=== PATIENT | male | born 1945 | race Caucasian/White ===

== ENCOUNTER 2017-09-23 12:36 | Emergency (ER) | payer MEDICARE, OTHER, SELFPAY ==
[2017-09-23 12:37] VITALS: BP 138/75; PULSE 99; RESP 18; TEMP 37.4; O2SAT 93; BMI 30.7
--- NOTE | 2017-09-23 12:57 | NURSING ---
NO LW OR POA
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
[2017-09-23 13:02] LABS: Mucous, Urine 0 SEEN /hpf (<or=2+); Red Blood Cells-Urine 0 SEEN /hpf (0-5); Squamous Epithelial Cells - UA 0 SEEN /hpf (0-5)
[2017-09-23 13:19] LABS: Color, Urine Amber (Yellow); Glucose, Dipstick Normal (Normal); Ketone-Dipstick 15 mg/dl (Negative); Leukocyte Esterase-Dipstick 500 /ul (Negative); Nitrite-Dipstick Positive (Negative); Occult Blood-Urine 250 /ul (Negative); Protein-Dipstick 100 mg/dl (Negative); Urine Clarity Cloudy (Clear); Urine Urobilinogen 1 mg/dl (Normal)
[2017-09-23 13:20] LABS: Urine Bilirubin Dipstick 1 mg/dL (Negative)
[2017-09-23 13:23] LABS: Absolute Lymphocyte Count 1.18 X10^3/ul (0.83-4.51); Absolute Neutrophil Count 10.8 X10^3/uL (2.0-7.7); Basophil# 0.01 X10^3/uL; Basophil% 0.1 % (0-1); Hematocrit 43.6 % (40-54); Hemoglobin 15.2 g/dl (13.0-16.5); Lymphocyte # 1.18 X10^3/ul (4.0); Lymphocyte % 9.2 % (19-41); Mean Corp Hgb Conc 34.9 g/gl (32-36); Mean Corpuscular Hgb 30.8 pg (27.0-32.0); Mean Corpuscular Volume 88.3 fL (80-94); Mean Platelet Vol. 11.2 fl (6.2-12.0); Monocyte# 0.85 X10^3/uL; Monocyte% 6.6 % (0-10); Neutrophil # 10.79 X10^3/uL (2.7-7.7); Neutrophil % 83.9 % (47-70); POSITIVE COUNT NO; POSITIVE DIFFERENTIAL NO; POSITIVE MORPHOLOGY NO; Platelet Count 143 K/mm3 (150-450); RBC Distribution Width CV 12.9 % (11.6-14.6); RBC Distribution Width SD 41.8 fl (35.1-43.9); Red Blood Count 4.94 M/mm3 (4.6-6.2); White Blood Count 12.9 K/mm3 (4.4-11.0)
[2017-09-23 13:29] LABS: Bacteria 2+ /hpf (None Seen); White Blood Cells >100 SEEN /hpf (0-5)
[2017-09-23 13:35] LABS: Anion Gap 6 (5-15); BUN 12 mg/dL (7-18); BUN/Creat Ratio 10.4 RATIO (10-20); Calcium,Total 8.7 mg/dL (8.5-10.1); Chloride 106 mmol/L (98-107); Creatinine, Serum 1.15 mg/dL (0.70-1.30); EST Glomerular Filtration Rate 66 mL/min (>60); Est Glom Filt Rate - Afr Amer 80 mL/min (>60); Estimated Creatinine Clearance 50.86 ml/min; Glucose 151 mg/dL (74-106); Potassium 3.9 mmol/L (3.5-5.1); Sodium Level 137 mmol/L (136-145)
--- NOTE | 2017-09-23 14:23 | DCINST.ED_ITS ---
ED Disposition - Plan for ED Patient: Chief Complaint: Complaint Instructions: ED UTI Cystitis Male Prescriptions: Ciprofloxacin [Cipro] 500 mg PO BID #14 tab Referrals: [facility] Doctor,Out of [Primary Care Provider] -
--- NOTE | 2017-09-23 14:24 | DCINST.ED_ITS ---
ED Disposition - Plan for ED Patient: Chief Complaint: Complaint Instructions: ED UTI Cystitis Male Prescriptions: Ciprofloxacin [Cipro] 500 mg PO BID #14 tab Referrals: [facility] Doctor,Out of [Primary Care Provider] -
[2017-09-23 15:15] VITALS: BP 121/70; PULSE 95; RESP 16; TEMP 37.4; O2SAT 92
--- NOTE | 2017-09-23 15:16 | ED.RN ---
REVIEWED D/C INSTRUCTIONS, FOLLOW UP CARE, PRESCRIPTION, AND S/S THAT WOULD WARRANT A RETURN TO THE ED WITH PT. PT VERBALIZED AN UNDERSTANDING AND DENIES FURTHER QUESTIONS FOR THIS RN. PT SKIN P/W/D, RESP EVEN AND UNLABORED, PT A&O X 3, NO DISTRESS NOTED. PT AMBULATED OUT OF ED, GAIT STEADY.
== END 2017-09-23 15:17 | disposition home or self-care (01) ==
PROVIDERS: Emergency Provider Emergency Medicine
DX: N39.0 Urinary tract infection, site not specified (principal); Z79.899 Other long term (current) drug therapy
CPT/HCPCS: 80048; 81001; 85025; 87086; 87088; 87186; 96365; 99283; J7050; A4216

== ENCOUNTER 2021-11-16 16:50 | Inpatient (IN) | payer MEDICARE, OTHER, SELFPAY ==
[2021-11-16 16:50] VITALS: BP 134/90; PULSE 81; RESP 16; TEMP 37.3; O2SAT 93; BMI 30.4
--- NOTE | 2021-11-16 17:32 | CT_ITS ---
STUDY: CT ABDOMEN AND PELVIS WITHOUT CONTRAST REASON FOR EXAM: Male, 76 years old. Kidney Stone RADIATION DOSAGE (If Supplied By Facility): CTDIvol = ( 13.92 ) mGy, DLP = ( 726.97 ) mGycm TECHNIQUE: Transaxial images were obtained from the dome of the diaphragm to the symphysis pubis without oral contrast, and without intravenous contrast. Sagittal and coronal images were reconstructed. Individualized dose optimization techniques were used for this CT. COMPARISON: None. FINDINGS: There are chronic interstitial fibrotic changes of the lung bases. There is nodular pleural thickening in the right lung base. There are coronary artery calcifications. Normal liver. There are multiple gallstones. Normal spleen. Normal pancreas. Normal bilateral adrenal glands. Normal right kidney. There is moderate left hydronephrosis with perinephric stranding. Left ureter is dilated into the pelvis. There is 0.4 cm left distal ureteral stone. Normal visualized stomach. Normal small intestine. There are a few multiple colonic diverticula consistent with diverticulosis. The appendix is visualized and appears normal. There is diffuse atherosclerotic calcification of the abdominal aorta, without a demonstrated aneurysm. Normal inferior vena cava. Normal retroperitoneum. There is wall thickening of the urinary bladder. There is enlargement of the prostate gland. There is no free fluid in the abdomen or pelvis. Normal abdominal wall. There are diffuse degenerative changes of the visualized lumbar spine. There is right hip replacement. CT/Abdomen/Pelvis without Cont IMPRESSION: Left distal ureteral stone with hydronephrosis. Wall thickening of the urinary bladder. Enlarged prostate gland. Multiple gallstones. No dilated dilatation. Colonic diverticulosis. No obstruction or abscess. Electronically Signed: Vladimir Ramirez MD at 18:33 EDT Reading Location ID and State: [facility] / , Service support ,
[2021-11-16] MEDS: Morphine 4 MG/ML Syringe IV (17:38)
[2021-11-16] MEDS: Ketorolac 15 MG/ML Vial IV (17:38)
[2021-11-16] MEDS: Ondansetron 4 MG/2 ML Vial IV (17:39)
[2021-11-16] MEDS: 0.9% Normal Saline 1,000 ML 250 ML IV (17:43)
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
[2021-11-16 18:02] LABS: Bacteria 0 SEEN /hpf (None Seen); Mucous, Urine 0 SEEN /hpf (<or=2+); Red Blood Cells-Urine 0 SEEN /hpf (0-5); Squamous Epithelial Cells - UA 0 SEEN /hpf (0-5)
[2021-11-16 18:06] LABS: Color, Urine Yellow (Yellow); Glucose, Dipstick Normal (Normal); Ketone-Dipstick 5 mg/dl (Negative); Leukocyte Esterase-Dipstick 25 /ul (Negative); Nitrite-Dipstick Negative (Negative); Occult Blood-Urine 10 /ul (Negative); Protein-Dipstick 15 mg/dl (Negative); Specific Gravity, Urine 1.015 (1.002-1.030); Urine Bilirubin Dipstick Negative (Negative); Urine Clarity Clear (Clear); Urine Urobilinogen 1 mg/dl (Normal)
[2021-11-16 18:22] LABS: White Blood Cells 0-5 SEEN /hpf (0-5)
[2021-11-16 18:24] LABS: Anion Gap 8 (5-15); BUN 17 mg/dL (7-18); BUN/Creat Ratio 11.3 RATIO (10-20); Calcium,Total 9.3 mg/dL (8.5-10.1); Chloride 100 mmol/L (98-107); Creatinine, Serum 1.51 mg/dL (0.70-1.30); EST Glomerular Filtration Rate 48 mL/min (>60); Est Glom Filt Rate - Afr Amer 58 mL/min (>60); Estimated Creatinine Clearance 36.38 ml/min; Glucose 108 mg/dL (74-106); Potassium 3.9 mmol/L (3.5-5.1); Sodium Level 135 mmol/L (136-145)
[2021-11-16 19:00] VITALS: BP 127/78; PULSE 61; RESP 15; TEMP 36.8; O2SAT 96
[2021-11-16 19:35] VITALS: BP 127/78; PULSE 61; RESP 15; TEMP 36.9; O2SAT 95
[2021-11-16 20:29] VITALS: BMI 30.7
[2021-11-16 20:48] VITALS: BP 123/74; PULSE 63; RESP 16; TEMP 36.6; O2SAT 97
[2021-11-16] MEDS: 0.9% Normal Saline 1,000 ML 75 ML IV (22:03)
[2021-11-17] VITALS (10 sets, daily range): BP systolic 105–136; BP diastolic 61–82; PULSE 52–66; RESP 16–18; TEMP 36.6–37.7; O2SAT 94–98; BMI 30.7
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
--- NOTE | 2021-11-17 07:23 | PCM.DC ---
Discharge Instructions Diet Discharge Diet: No restrictions Follow Up Care Please Follow Up With: Bright Aguilar MD Test Results: Test results from this visit will be discussed in further detail at your follow-up appointment, if applicable. Discharge Plan Admission Admit Date/Time: 11/16/21 20:29 Attending Provider: Bright Aguilar Primary Care Provider: Jeremy Barrientos Discharge Orders/Prescriptions Prescriptions: No Action tamsulosin 0.4 MG capsule 0.4 mg PO DAILY omeprazole 20 MG capsule 20 mg PO DAILY Ibuprofen [Motrin] 800 MG tablet 800 mg PO PRN PRN (Reason: Pain) hydrocodone-acetaminophen 5-325 mg Tablet 1 tab PO Q4H PRN (Reason: Pain) Referrals / Follow Up: [facility] Doctor,Out of [NON-STAFF] - Jeremy Barrientos MD [Primary Care Provider] -
[2021-11-17] MEDS: 0.9% Normal Saline 1,000 ML 75 ML IV ×2 (10:17→17:24)
--- NOTE | 2021-11-17 14:01 | CHAPLAIN ---
Type of Pastoral Visit _x__ Initial Visit ___ Follow-up Visit ___ On-call Visit ___ General Patient Visit ___ Spiritual Assessment ___ Family Conference ___ Bereavement ___ Rapid Response ___ Code Blue ___ Other (describe below) Pastoral Care Referral From _x__ Patient ___ Family ___ Nurse ___ Physician ___ Metal Buggy Operator ___ Comfort Station Supervisor ___ Other (describe below) Sacrament/Intervention _x__ Active listening ___ Anointing ___ Holiness ___ Bereavement ___ Communion ___ Deisy exploration ___ _x__ Life review _x__ Prayer ___ Reconciliation ___ Sacrament of Sick _x__ Supportive presence ___ Wedding ___ Other (describe below) Pastoral Comments patient reports on how he is feeling and that this has been going on for two weeks; pt thankful that he could be added to surgery schedule today; pt is talkative and gives details of self and hobbies; pt identifies as a man of deisy and believes God is present and helpful; pt recounts past 'miracles'; pt welcomes prayer
[2021-11-17] MEDS: Cefazolin 1 GM/50 ML BAG IV (16:13)
--- NOTE | 2021-11-17 16:43 | PCM.OPRPT ---
Report of Operation Date of Procedure: 11/17/21 Pre-Operative Diagnosis: Obstructing left ureteral calculi Post-Operative Diagnosis: The same with pyelonephritis left side Surgery/Procedure Performed:: Cystoscopy left stent placement Description of Surgical Findings:: Patient was taken back to the operating room at the [facility] duction of general anesthesia he was placed in dorsolithotomy position. I went into the bladder with a 21 Portuguese rigid cystourethroscope the entire length the urethra was normal the sphincter was intact the prostate was enlarged with obstruction got inside the bladder identified the left ureteral orifice and cannulated with a 0.038 Glidewire immediately once I hit the stone went past the stone got E flux of purulent infected looking fluid from the left kidney a lot of debris so then I put the wire up into the kidney decided not to attempt removal of the stone or lithotripsy since he has an active infection and then over the wire I advanced a stent there is a 6 Portuguese by 26 cm stent was a stent was in good position I drained the bladder left stent in place to clear the infection allow the ureter to dilate and I will bring him back in 2 or 3 weeks for laser of the stone and removal of stent. Surgeon: Bright Aguilar Type of Anesthesia: General Drains: stent left side Admit VTE Documentation VTE Present on Admission: No VTE Mechan Device Prophylaxis: SCD's VTE Pharm Prophylaxis ordered?: No
[2021-11-17] MEDS: Pantoprazole Sodium 20 MG Tablet PO (18:41)
[2021-11-17] MEDS: Ciprofloxacin 400 MG/200 ML BAG 200 MG IV (21:14)
[2021-11-18 02:07] VITALS: BP 104/68; PULSE 56; RESP 16; TEMP 36.5; O2SAT 94
[2021-11-18 06:07] VITALS: BP 114/70; PULSE 90; RESP 16; TEMP 36.5; O2SAT 94
[2021-11-18] MEDS: 0.9% Normal Saline 1,000 ML 75 ML IV (06:11)
--- NOTE | 2021-11-18 07:38 | PCM.PN.GU ---
Subjective Subjective Status post stent placement on the patient's left side for obstructing stone he had a lot of pus and purulent material up in the kidney so ureteroscopy was not advised to just place a stent we will bring him back next week for ureteroscopy laser the stone removal stent he will go home with antibiotics today. Objective Data Objective Data Vital Signs: Vital Signs Temp Pulse Resp BP Pulse Ox O2 Del Method 97.7 F L 90 16 114/70 94 Room Air 11/18/21 06:07 11/18/21 06:07 11/18/21 06:07 11/18/21 06:07 11/18/21 06:07 11/18/21 06:07 Oxygen Delivery Method Room Air Weight: 86.7 kg Body Mass Index (BMI) 30.7 Intake & Output: Intake and Output for Last 24 Hours 11/16/21 11/17/21 11/18/21 23:59 23:59 23:59 Intake Total 1000 / 1000 2455.0 / 2455.0 596.25 / 596.25 Output Total 120 / 120 775 / 775 1025 / 1025 Balance 880 / 880 1680.0 / 1680.0 -428.75 / -428.75 Lab / Micro Data Result Diagrams: 11/16/21 17:15 Micro: Microbiology 11/16/21 17:20 Urine, Clean Catch Urine Culture - Preliminary Culture exhibits no growth.
--- NOTE | 2021-11-18 07:40 | PCM.DC.SUM ---
Providers Date of Admission: 11/16/21 Date of Discharge: 11/18/21 Primary Care Physician: Dr. Jeremy Barrientos MD Reason For Visit: KIDNEY STONE Diagnosis Discharge Diagnosis (1) Renal colic on left side: Status: Acute Code(s): N23 - Unspecified renal colic Plan: admit for pain control (2) Urolithiasis: Status: Acute Code(s): N20.9 - Urinary calculus, unspecified Plan: plan for Surgery in am with left ureteroscopy laser stone. Medications at Discharge Home Medications Ibuprofen [Motrin] 800 mg PO PRN PRN Pain 11/21/15 omeprazole 20 mg capsule,delayed release 20 mg PO DAILY 11/21/15 tamsulosin 0.4 mg capsule 0.4 mg PO DAILY 11/21/15 hydrocodone-acetaminophen 5-325mg 5mg-325mg 1 tab PO Q4H PRN Pain 11/16/21 ciprofloxacin HCl 500 mg tablet (Cipro) 500 mg PO BID #10 tabs 11/18/21 Hospital Course Summary of Care Provided Hospital Course: Patient was admitted with a kidney stone underwent surgery stent was placed for obstruction and infection he will go home with antibiotics he is feeling better. Physical Exam Const alert and oriented x3 General Appearance: cooperative HEENT normocephalic, head/scalp atraumatic, EAC's normal and TM's normal bilaterally Eyes PERRL and EOMs intact bilaterally Pupil: sluggish Neck no lymphadenopathy, supple and no JVD General: trachea midline Lymph Lymphatic: no lymphadenopathy noted, lymphedema and lymphadenopathy Resp normal respiratory effort, normal air movement and clear to auscultation bilaterally Cardio regular rate, regular rhythm and peripheral pulses 2+ throughout GI soft to palpation, non-tender and non-distended Extremity normal capillary refill and no clubbing, cyanosis or edema General Extremity: no tenderness to palpation of joints or extremities Skin no rashes or lesions noted General Skin Exam: turgor normal Lesions: no lesions Rashes: no rashes Neuro CN's II-XII intact bilaterally Speech: speech normal Motor Exam: strength 5/5 throughout; Negative for general weakness Psych thought process normal, cooperative and affect normal Appearance: appropriate MDM Narrative Medical decision making narrative: CT scan was reviewed history and physical was done on exam patient was interviewed diagnosis was made he is taken to surgery found to have infection place a stent he will go home with antibiotics. Medical Records Data Attestation: I reviewed the patient's medical records Weight / BMI Weight Weight: 86.7 kg Body Mass Index (BMI) 30.7 ABG / Lab / Microbiology Data Result Diagrams: 11/16/21 17:15 Microbiology: Microbiology 11/16/21 17:20 Urine, Clean Catch Urine Culture - Preliminary Culture exhibits no growth. Radiography Diagnostic Testing: CT scan reviewed D/C Instructions Discharge Diet: No restrictions Please Follow Up With: Bright Aguilar MD Meaningful Use Info Meaningful Use Diagnoses (Choose all that apply): None applicable Discharge Plan Admission Admit Date/Time: 11/17/21 16:14 Primary Reason for Your Visit: ureteral calculi Attending Provider: Bright Aguilar Primary Care Provider: Jeremy Barrientos Discharge Orders/Prescriptions Prescriptions: New ciprofloxacin HCl [Cipro] 500 mg tablet 500 mg PO BID Qty: 10 0RF Continued tamsulosin 0.4 MG capsule 0.4 mg PO DAILY omeprazole 20 MG capsule 20 mg PO DAILY Ibuprofen [Motrin] 800 MG tablet 800 mg PO PRN PRN (Reason: Pain) hydrocodone-acetaminophen 5-325 mg Tablet 1 tab PO Q4H PRN (Reason: Pain) Referrals / Follow Up: Jeremy Barrientos MD [Primary Care Provider] - Bright Aguilar MD [STAFF PHYSICIAN] - [facility] Doctor,Out of [NON-STAFF] - Disposition Discharge Orders: Discharge Patient (Routine); Ordered 11/18/21 Ordered By: Dr. Bright Aguilar
[2021-11-18] MEDS: Tamsulosin HCl 0.4 MG Capsule PO (08:52)
[2021-11-18] MEDS: Pantoprazole Sodium 20 MG Tablet PO (08:52)
[2021-11-18] MEDS: Ciprofloxacin 400 MG/200 ML BAG 200 MG IV (08:53)
--- NOTE | 2021-11-18 10:30 | CASEMGMT ---
ANALY CASTELLANOS Assessment: Face to Face with pt for initial transition planning/care coordination assessment. ANALY CASTELLANOS introduced self and role at [facility], pt voices understanding and consents to assessment. Pt is A/O x4 and answers all questions appropriately at this time. Pt sitting up in bed in no distress. Care providers, pharmacy, and demographics verified/updated. Admitting Dx: kidney stone PCP:Floyd Specialists:tita Aguilar Pharmacy: [facility] Retail, pt has had rx delivered to room. Insurance: MCR, Comm other Prescription Benefit: yes LW/HPOA: Pt states he has a LW/DPOA and his is his DPOA. He is aware it is not on file at [facility] and he may bring in to be scanned into the chart. LNOK: Maryjane Nava, Living Arrangements: Pt lives in a single story house with 3 steps to enter with a rail on both sides. Pt reports he is I in ADL's and denies concerns at home. Transportation: Pt drives self and denies concerns with transportation. DME/HHC/SNF: Pt has all kinds of DME. States he has crutches, shower chairs and typically uses a cane. Pt denies hx of HHC or SNF stays. Pt states no concerns with going home at time of dc. Pt states no further concerns/needs. CM to follow. Pt discussed multiple health stories and experiences. Advised pt to ask CM if any further question/concerns/needs arise, voices understanding. Pt Goal: Home Plan: Home
[2021-11-18 11:33] VITALS: BP 104/70; PULSE 67; RESP 18; TEMP 36.8; O2SAT 95
== END 2021-11-18 11:45 | disposition home or self-care (01) | DRG 661 ==
LOC: ED 19:43 → MS3 19:52
PROVIDERS: Admitting Provider Urology; Emergency Provider Emergency Medicine; PCP Family Medicine; Visit Provider Urology
PROC: 0TJ98ZZ Inspection of Ureter, Via Natural or Artificial Opening Endoscopic (ICD-10-PCS; CPT 52352; principal; 2021-11-17 15:05)
DX: N13.6 Pyonephrosis (principal); G89.29 Other chronic pain; K21.9 Gastro-esophageal reflux disease without esophagitis; R31.9 Hematuria, unspecified; Z86.73 Personal history of transient ischemic attack (TIA), and cerebral infarction without residual deficits
CPT/HCPCS: 74176; 80048; 81001; 87086; 87088; 99284; J7030; C1769; C2617; J0744; J2405

== ENCOUNTER 2021-11-24 10:07 | Day surgery (SDC) | payer MEDICARE, OTHER, SELFPAY ==
--- NOTE | 2021-11-24 10:10 | RAD_ITS ---
EXAM: XR ABDOMEN, 1 VIEW CLINICAL INDICATION: LEFT KIDNEY STONE/PREOP TECHNIQUE: Frontal supine view of the abdomen/pelvis. This report was created using [employer] report generation technology. COMPARISON: None. FINDINGS: LOWER THORAX: No acute pathology. GASTROINTESTINAL TRACT: Normal bowel gas pattern. ORGANS: No organomegaly. BONES/JOINTS: Right hip prosthesis noted. SOFT TISSUES: No pathological calcification. TUBES, LINES AND DEVICES: Left double-J ureteral stent catheter in place. RAD/Abdomen Single View IMPRESSION: No discrete evidence of urinary tract stone Electronically Signed: Aneesh Randolph MD at 11:30 EDT ,
[2021-11-24 10:44] VITALS: BP 132/78; PULSE 67; RESP 16; TEMP 36.8; O2SAT 95; BMI 30.2
[2021-11-24] MEDS: Lactated Ringers 1,000 ML 15 ML IV (10:50)
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
--- NOTE | 2021-11-24 11:48 | DCINST_ITS ---
Discharge Instructions Diet Discharge Diet: Light diet - advance as tolerated and Soft diet Activity Discharge Activity: Return to Normal Activity Follow Up Care Please Follow Up With: Bright Aguilar MD When: call for appt. Test Results: Test results from this visit will be discussed in further detail at your follow- up appointment, if applicable. Discharge Plan Admission Primary Reason for Your Visit: ureteroscopy laser stone, remove stent Attending Provider: Bright Aguilar Primary Care Provider: Jeremy Barrientos Instructions Patient Instructions: Treating Kidney Stones ... Discharge Orders/Prescriptions Prescriptions: Continued tamsulosin 0.4 MG capsule 0.4 mg PO DAILY omeprazole 20 MG capsule 20 mg PO DAILY Ibuprofen [Motrin] 800 MG tablet 800 mg PO PRN PRN (Reason: Pain) hydrocodone-acetaminophen 5-325 mg Tablet 1 tab PO Q4H PRN (Reason: Pain) Referrals / Follow Up: Jeremy Barrientos MD [Primary Care Provider] - Bright Aguilar MD [STAFF PHYSICIAN] - Disposition Disposition (needs filled in before D/C Order can be placed): Home, Self Care
[2021-11-24] MEDS: Cefazolin 2 GM in 0.9% Normal Saline 100 ML IV (12:00)
--- NOTE | 2021-11-24 12:17 | PCM.OPRPT ---
Report of Operation Date of Procedure: 11/24/21 Pre-Operative Diagnosis: left ureteral caluli, s/p stent Post-Operative Diagnosis: same Surgery/Procedure Performed:: left ureteroscopy laser lithotripsy of stone and removal of left stent Description of Surgical Findings:: Patient was taken back to the operating room at a smooth induction of general anesthesia he was placed in dorsolithotomy position the penis and testicles were prepped and draped in usual sterile fashion within the bladder with a 21 Japanese rigid cystourethroscope grabbed the existing stent pulled out the meatus put a wire up through the stent, once the wire was in place secured to the drapes and then next to the wire went in with a semirigid ureteroscope and was able to get into the ureter quite easily work my way up the ureter quite slowly and then encountered the stone then using at 400 ?m laser fiber I lasered the stone little tiny pieces and all the pieces flushed into the bladder I worked my way the ureter up as high as possible to go away with the ureteroscope there is no other obstruction of course the ureter and then I pulled the wire and a nice wide open ureter no obstruction I decided not to leave a stent all the stone fragments have passed drained the bladder patient anesthetic reversed and he can see him back in 4 to 6 weeks for checkup in the office. Surgeon: Bright Aguilar Type of Anesthesia: General Drains: no stent Admit VTE Documentation VTE Present on Admission: No VTE Mechan Device Prophylaxis: SCD's VTE Pharm Prophylaxis ordered?: No
[2021-11-24 12:26] VITALS: BP 116/76; BP 132/78; PULSE 65; RESP 16; TEMP 36.4; O2SAT 94
[2021-11-24 12:30] VITALS: BP 113/76; BP 132/78; PULSE 57; RESP 16; O2SAT 98
[2021-11-24 12:45] VITALS: BP 117/78; BP 132/78; PULSE 57; RESP 16; O2SAT 98
[2021-11-24 13:00] VITALS: BP 124/75; BP 132/78; PULSE 55; RESP 16; TEMP 36.7; O2SAT 97
[2021-11-24 13:55] VITALS: BP 132/78
== END 2021-11-24 14:01 | disposition home or self-care (01) ==
LOC: SDC 10:08 → AC 10:10
PROVIDERS: PCP Family Medicine; Referring Provider Urology; Visit Provider Urology
PROC: 0TJ98ZZ Inspection of Ureter, Via Natural or Artificial Opening Endoscopic (ICD-10-PCS; CPT 52352; principal; 2021-11-24 12:00)
DX: N20.1 Calculus of ureter (principal); M19.90 Unspecified osteoarthritis, unspecified site; G89.29 Other chronic pain; K21.9 Gastro-esophageal reflux disease without esophagitis; Z79.899 Other long term (current) drug therapy; Z86.73 Personal history of transient ischemic attack (TIA), and cerebral infarction without residual deficits
CPT/HCPCS: 52353; 74018; J7120; C1769; J2405

== ENCOUNTER → 2024-01-25 | Outpatient (CLI) | payer MEDICARE, OTHER, SELFPAY ==
[2024-01-25 17:11] LABS: PSA,Total - Annual Screen 3.96 ng/mL (0.00-4.00)
== END | disposition home or self-care (01) ==
LOC: LAB 15:50
PROVIDERS: PCP Family Medicine; Referring Provider Urology; Visit Provider Urology
DX: Z12.5 Encounter for screening for malignant neoplasm of prostate (principal)
CPT/HCPCS: 36415; 84153; G0103

== ENCOUNTER 2024-08-16 11:09 | Observation (INO) | payer MEDICARE, SELFPAY ==
--- NOTE | 2024-08-08 14:07 | EKG12_ITS ---
Test Reason : PREOP Blood Pressure : */* mmHG Vent. Rate : 68 BPM Atrial Rate : 68 BPM P-R Int : 184 ms QRS Dur : 86 ms QT Int : 410 ms P-R-T Axes : 14 -44 -10 degrees QTcB Int : 435 ms Normal sinus rhythm Left axis deviation Inferior infarct , age undetermined Possible Anterior infarct , age undetermined Abnormal ECG Confirmed by BILLY KAPADIA, LINDA ([id number]), health editor SANTY LOFTON ([id number]) on 08/09/2024 5:48:28 AM Referred By: Bright Aguilar Confirmed By: LINDA CERVANTES MD
[2024-08-08 14:57] LABS: Hematocrit 47.8 % (40-54); Hemoglobin 16.3 g/dL (13.0-16.5); Mean Corp Hgb Conc 34.1 g/dL (32-36); Mean Corpuscular Hgb 29.5 pg (27.0-32.0); Mean Corpuscular Volume 86.6 fL (80-94); Mean Platelet Vol. 11.2 fl (6.2-12.0); Platelet Count 153 K/mm3 (150-450); RBC Distribution Width CV 13.3 % (11.6-14.6); RBC Distribution Width SD 41.6 fl (35.1-43.9); Red Blood Count 5.52 M/mm3 (4.6-6.2); White Blood Count 5.9 K/mm3 (4.4-11.0)
[2024-08-08 16:33] LABS: Anion Gap 11 (5-15); BUN 21 mg/dL (4-19); BUN/Creat Ratio 21.4 RATIO (10-20); Calcium,Total 9.4 mg/dL (7.6-11.0); Carbon Dioxide 20.7 mmol/L (21.0-32.0); Chloride 107 mmol/L (98-108); Creatinine, Serum 0.99 mg/dL (0.70-1.20); EST Glomerular Filtration Rate 77 (>60); Glucose 94 mg/dL (70-99); Potassium 4.5 mmol/L (3.3-5.1); Sodium Level 138 mmol/L (133-145)
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
[2024-08-16] VITALS (10 sets, daily range): BP systolic 116–144; BP diastolic 85–97; PULSE 51–84; RESP 16–20; TEMP 36.3–37.1; O2SAT 93–100; BMI 31.1
[2024-08-16] MEDS: 0.9% Normal Saline (1000mL) 1,000 ML 15 ML IV (09:47)
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
--- NOTE | 2024-08-16 11:08 | PCM.DC ---
Discharge Instructions Diet Discharge Diet: No restrictions DC O2, CPAP, BIPAP needs Home O2 Discharge instructions: No Dressing / Incision Discharge Activity: Return to Normal Activity and May Not Drive (while taking narcotic pain medications.) Dressing / Incision Call your doctor if you observe: Fever of 101 or Higher Follow Up Care Please Follow Up With: Bright Aguilar MD When: Call [phone] for an appointment Test Results: Test results from this visit will be discussed in further detail at your follow-up appointment, if applicable. Discharge Plan Admission Primary Reason for Your Visit: turp Attending Provider: Bright Aguilar Primary Care Provider: Jeremy Barrientos Instructions Print Language: Macedonian Discharge Orders/Prescriptions Prescriptions: Continued tamsulosin 0.4 MG capsule 0.4 mg PO DAILY finasteride 5 mg tablet 5 mg PO DAILY omeprazole 40 mg capsule,delayed release(DR/EC) 40 mg PO DAILY Held aspirin [Adult Aspirin Regimen] 81 mg tablet,delayed release (DR/EC) 81 mg PO DAILY Hold Instructions: Resume on 08/30/24. Referrals / Follow Up: Jeremy Barrientos MD [Primary Care Provider] - Disposition Disposition (needs filled in before D/C Order can be placed): Home, Self Care
[2024-08-16] MEDS: Cefazolin 2 GM in Syringe IV (11:10)
--- NOTE | 2024-08-16 12:15 | OP.PCM_ITS ---
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 Type of Anesthesia: General RN Documented Start/Stop Times: Operation Date: 08/16/24 14:15 Case Time Into Pre-Op 08/16/24 09:24 Anesthesia Start 08/16/24 11:09 Into Room 08/16/24 11:09 Procedure Start 08/16/24 11:22 Procedure Start Time: 11:22 Procedure Stop Time: 12:15 Select all DRAINS/GRAFTS/IMPLANTS that apply: Drains Drain details: 22 Sinhala three-way Carrasco Estimated Blood Loss: 10 cc Specimen collected: Yes Description of specimen(s) removed: Prostate tissue Description of surgery: In the preoperative setting I discussed with the patient how the surgery would be done with expect afterwards. We discussed how a prostate resection is done and we discussed the risk of the surgery including, bleeding, infection, retrograde ejaculation, changes with ejaculation or intercourse,. We discussed the possibility that the resection of the prostate may not alleviate his urinary symptoms. We discussed the small risk of developing scar tissue along the urethral channel and strictures. We also discussed the chance of the prostate could grow back and he may need further surgery or treatment in the future for prostate problems. Patient was taken back to the operating room, timeout procedure was performed, he was identified and marked and placed on the operating room table. He underwent general anesthesia. He was placed in dorsolithotomy position. Penis and testicles were prepped and draped in usual sterile fashion. Went into the bladder using the visual obturator with a resectoscope. Once inside the bladder identified the right and left ureteral orifice. I then identified the prostate and the anatomy of the prostate. I marked out the area of the sphincter and the verumontanum was identified. I then proceeded with the prostate resection first resected the median lobe. And then resected the right lobe of the prostate. Then to resect the left lobe of the prostate. I then resected the apical tissue of the prostate. This was a complete resection of all obstructive tissue to improve voiding and relieve obstruction. I then made sure that there was no injury to the sphincter or the verumontanum was still intact. At the end of the resection all the chips were Ellik out of the bladder. I then identified the left and right ureteral orifice and these were confirmed to be in good position and effluxing and not injured. The resectoscope was removed, a 22 Sinhala catheter was placed into the bladder on continuous irrigation. And the urine was fairly light pink color and draining normally. He was taken back to the PACU in good condition. Surgical Findings: Prostate channel resected open Complications Complications: No Admit VTE Documentation VTE Present on Admission: No VTE Mechan Device Prophylaxis: SCD's VTE Pharm Prophylaxis ordered?: No
--- NOTE | 2024-08-16 12:32 | PCM.POST.ANE ---
Anesthesia: Postop Eval I Current Vital Signs Temperature: 97.4 F Pulse Rate: 74 Blood Pressure: 130/85 Respiratory Rate: 20 Pulse Ox: 97 Oxygen Delivery Method: Room Air Assessment Airway patent: Yes Spontaneous unlabored respirations: Yes Mental status: Awake and Calm nausea: No Vomiting: No Anesthesia Complication: No Fluid Hydration Crystalloid volume administer (ml): 1,100 Total IV fluid infused: 1,100 Progress Note Anesthesia document: Postop Eval 1 completed: Yes
[2024-08-16] MEDS: Ketorolac 15 MG/ML Vial IV (12:47)
--- NOTE | 2024-08-16 13:00 | PROS_PTH ---
PATIENT: DAVID LÓPEZ LOC: MS3 U#:[id number] AGE/SX: 79/M ROOM: [facility] [place] RE08/16/[address]: Dr. Bright Aguilar MD : [id number] BED: 1 DIS: 08/17/2024 SPEC #: [id number] RECD: 08/16/24 13:38 STATUS: ANNA CURTIS #: [id number] EFRAIN: 08/16/24 13:[address]: Bright Aguilar DEPT: SURGICAL PATHOLOGY RECD BY: David Clark ENTERED: 08/16/24 13:40 SP TYPE: TURP OTHR DR: Dr. Jeremy Barrientos MD Tissues: A - Prostate, NOS Procedures: Surgery Specimen Level IV HEADER OPERATION: Cysto, transurethral resection PRE-OP DIAGNOSIS: Benign prostate hyperplasia TISSUE SUBMITTED: A- Prostate pieces MICROSCOPIC DIAGNOSIS A. PROSTATE, TRANSURETHRAL RESECTION:- Benign stromal and glandular hyperplasia. MICROSCOPIC DESCRIPTION Slides are reviewed. GROSS DESCRIPTION Received in formalin labeled, David López, and designated prostate pieces, are multiple pink-tang, ragged, irregularly-shaped, and elongated, rubbery tissue fragments that have a combined weight of 20.5 g and aggregate to 6.5 x 5.5 x 2.5 cm. Cement Mixer sections are submitted in 10 cassettes. LUIS MIGUEL 08/16/2024 CPT:08011
[2024-08-16] MEDS: 0.9% Normal Saline (1000mL) 1,000 ML 100 ML IV ×2 (13:51→21:59)
[2024-08-16] MEDS: Pantoprazole Sodium 40 MG Tablet PO (20:17)
[2024-08-16] MEDS: Ciprofloxacin 400 MG/200 ML BAG 200 MG IV (21:59)
[2024-08-16] MEDS: Docusate Sodium 100 MG Capsule 200 MG PO (21:59)
[2024-08-17 00:41] VITALS: BP 111/78; PULSE 66; RESP 18; TEMP 36.4; O2SAT 93
[2024-08-17 04:22] VITALS: BP 129/80; PULSE 80; RESP 18; TEMP 36.3; O2SAT 94
[2024-08-17 06:07] LABS: Absolute Lymphocyte Count 0.95 X10^3/uL (0.83-4.51); Absolute Neutrophil Count 7.2 X10^3/uL (2.0-7.7); Basophil# 0.01 X10^3/uL; Basophil% 0.1 % (0-1); Hematocrit 45.9 % (40-54); Hemoglobin 15.4 g/dL (13.0-16.5); Lymphocyte # 0.95 X10^3/ul (0.83-4.51); Lymphocyte % 11.1 % (19-41); Mean Corp Hgb Conc 33.6 g/dL (32-36); Mean Corpuscular Hgb 29.6 pg (27.0-32.0); Mean Corpuscular Volume 88.3 fL (80-94); Mean Platelet Vol. 12.3 fl (6.2-12.0); Monocyte# 0.37 X10^3/uL; Monocyte% 4.3 % (0-10); NRBC Flagged by Analyzer 0.2 % (0-5); Neutrophil # 7.23 X10^3/uL (2.7-7.7); Neutrophil % 84.3 % (47-70); Platelet Count 157 K/mm3 (150-450); RBC Distribution Width CV 13.3 % (11.6-14.6); RBC Distribution Width SD 43.3 fl (35.1-43.9); White Blood Count 8.6 K/mm3 (4.4-11.0)
[2024-08-17 07:45] LABS: Anion Gap 11 (5-15); BUN 14 mg/dL (4-19); BUN/Creat Ratio 14.8 RATIO (10-20); Calcium,Total 9.1 mg/dL (7.6-11.0); Carbon Dioxide 18.9 mmol/L (21.0-32.0); Chloride 109 mmol/L (98-108); Creatinine, Serum 0.91 mg/dL (0.70-1.20); EST Glomerular Filtration Rate 84 (>60); Estimated Creatinine Clearance 65.99 ml/min (50-250); Glucose 140 mg/dL (70-99); Potassium 4.4 mmol/L (3.3-5.1); Sodium Level 138 mmol/L (133-145)
[2024-08-17 08:53] VITALS: BP 137/85; PULSE 73; RESP 18; TEMP 36.5; O2SAT 97
[2024-08-17] MEDS: Docusate Sodium 100 MG Capsule 200 MG PO (09:04)
[2024-08-17] MEDS: Finasteride 5 MG Tablet PO (09:04)
[2024-08-17] MEDS: Tamsulosin HCl 0.4 MG Capsule PO (09:04)
--- NOTE | 2024-08-17 09:27 | PN.URO_ITS ---
Subjective Subjective Status post TURP, patient is doing well, about a bed not have any difficulties no complaints, we can stop CBI and he can go home today with a Carrasco catheter to gravity drainage and plug the irrigation port. He was instructed to call the office and get an appointment next Monday to have the catheter removed Objective Data Objective Data Vital Signs: Vital Signs Temp Pulse Resp BP Pulse Ox O2 Del Method 97.7 F L 73 18 137/85 H 97 Room Air 08/17/24 08:53 08/17/24 08:53 08/17/24 08:53 08/17/24 08:53 08/17/24 08:53 08/17/24 08:53 Oxygen Delivery Method Room Air Weight: 87.5 kg Body Mass Index (BMI) 31.1 Intake & Output: Intake and Output for Last 24 Hours 08/15/24 08/16/24 08/17/24 23:59 23:59 23:59 Intake Total 2930.08 / 2930.08 800 / 800 Output Total 2300 / 2300 700 / 700 Balance 630.08 / 630.08 100 / 100 Lab / Micro Data 08/17/24 05:03 08/17/24 05:03 Labs: Laboratory Results - last 24 hr 08/17/24 05:03: WBC 8.6, RBC 5.20, Hgb 15.4, Hct 45.9, MCV 88.3, MCH 29.6, MCHC 33.6, RDW Std Deviation 43.3, RDW Coeff of [place] 13.3, Plt Count 157, MPV 12.3 H, Immature Gran % (Auto) 0.200, Neut % (Auto) 84.3 H, Lymph % (Auto) 11.1 L, Roane % (Auto) 4.3, Eos % (Auto) 0.0, Baso % (Auto) 0.1, Absolute Neuts (auto) 7.2, Absolute Lymphs (auto) 0.95, Nucleated RBC % 0.2, Sodium 138, Potassium 4.4, C hloride 109 H, Carbon Dioxide 18.9 L, Anion Gap 11, BUN 14, Creatinine 0.91, Estim Creat Clear Calc 65.99, Est GFR (MDRD) Non-Af 84, BUN/Creatinine Ratio 14.8, Glucose 140 H, Calcium 9.1
== END 2024-08-17 11:00 | disposition home or self-care (01) ==
LOC: SDC 13:29 → MS3 13:29
PROVIDERS: Anesthesiology; Admitting Provider Urology; PCP Family Medicine; Referring Provider Urology; Visit Provider Urology
PROC: (CPT 52601; principal; 2024-08-16 14:00)
DX: N40.1 Benign prostatic hyperplasia with lower urinary tract symptoms (principal); N13.8 Other obstructive and reflux uropathy; Z86.718 Personal history of other venous thrombosis and embolism; K21.9 Gastro-esophageal reflux disease without esophagitis; Z86.73 Personal history of transient ischemic attack (TIA), and cerebral infarction without residual deficits; R31.0 Gross hematuria
CPT/HCPCS: 52601; 00914; 36415; 80048; 85025; 85027; 88305; 93005; 94668; 96361; 96365; 99221; G0378; J0744; J2405